=== PATIENT | male | born 1945 | race Caucasian/White ===

== ENCOUNTER 2018-05-13 10:50 | Emergency (ER) | payer MEDICARE, OTHER ==
[~2018-05-13] VITALS: Ht 170.2 cm; Wt 65.8 kg
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
[2018-05-13] MEDS ORDERED: DOPamine DRIP 250 ML IV ONE (10:53)
[2018-05-13] MEDS ORDERED: NS IV 1000 ML 1,000 ML IV ONE (10:53)
--- NOTE | 2018-05-13 10:53 | NUR ---
DR. HARRINGTON IN ROOM ASSESSING PT AT THIS TIME.
--- NOTE | 2018-05-13 10:55 | NUR ---
1055- DOPAMINE STARTED AT 5 MCG 1101- DOPAMINE INCREASED TO 7.5 MCG 1106- DOPAMINE INCREASED TO 10 MCG 1114- DOPAMINE STOPPED 1117- LEVOPHEN STARTED AT 5 MCG 1121- LEVOPHEN INCREASED TO 10 MCG 1132- DOPAMINE RESTARTED AT 10 MCG 1133- EMS 1 LITER NS DONE, 2ND LITER NS STARTED.
--- NOTE | 2018-05-13 10:55 | NUR ---
[facility]
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
--- NOTE | 2018-05-13 11:08 | NUR ---
LOUIST CALLED BACK AND REPORTS ON HER WAY COMING FROM [place]. ALSO RECCOMENDS LEVOPHED
--- NOTE | 2018-05-13 11:10 | NUR ---
END TIDAL 27 AT THIS TIME.
[2018-05-13] MEDS ORDERED: NS (IVPB) 250 ML ONE (11:11)
[2018-05-13] MEDS ORDERED: NOREPINEPHRINE 4 MG/4 ML (LEVOPHED) AMP IV ONE (11:11)
--- NOTE | 2018-05-13 11:18 | NUR ---
BLOOD DRAW FROM Wanda HAAS PER Amber MADRID APRN
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
[2018-05-13 11:33] LABS: BASOPHILS % (AUTO) 0 % (0-10); EOSINOPHILS % (AUTO) 1 % (0-10); HEMATOCRIT 30 % (40-54); HEMOGLOBIN 10.1 G/DL (13.3-17.7); LYMPHOCYTES # (AUTO) 1.9 X 10^3 (1.0-4.0); LYMPHOCYTES % (AUTO) 24 % (12-44); MEAN CORPUSCULAR HEMOGLOBIN 29 PG (25-34); MEAN CORPUSCULAR HGB CONC 33 G/DL (32-36); MEAN CORPUSCULAR VOLUME 86 FL (80-99); MEAN PLATELET VOLUME 9.3 FL (7.4-10.4); MONOCYTES # (AUTO) 0.4 X 10^3 (0.0-1.0); MONOCYTES % (AUTO) 5 % (0-12); NEUTROPHILS # (AUTO) 5.6 X 10^3 (1.8-7.8); NEUTROPHILS % (AUTO) 71 % (42-75); PLATELET COUNT 340 10^3/uL (130-400); RED CELL DISTRIBUTION WIDTH 14.9 % (10.0-14.5)
[2018-05-13 11:52] LABS: ALANINE AMINOTRANSFERASE 12 U/L (0-55); ALBUMIN 2.8 GM/DL (3.2-4.5); ALKALINE PHOSPHATASE 56 U/L (40-136); BILIRUBIN,TOTAL 0.2 MG/DL (0.1-1.0); BUN/CREATININE RATIO 12; CARBON DIOXIDE 18 MMOL/L (21-32); CHLORIDE 108 MMOL/L (98-107); CREATININE SERUM 1.14 MG/DL (0.60-1.30); GFR ESTIMATED > 60; GLUCOSE 252 MG/DL (70-105); POTASSIUM 3.3 MMOL/L (3.6-5.0); SODIUM 136 MMOL/L (135-145); TOTAL PROTEIN 5.1 GM/DL (6.4-8.2)
--- NOTE | 2018-05-13 12:00 | NUR ---
pastoral care samia here at this time.
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
--- NOTE | 2018-05-13 12:08 | NUR ---
PT BROTHER ARRIVED TO ED AT THIS TIME. Amber MADRID APRN TALKING TO PT BROTHER IN FAMILY ROOM.
--- NOTE | 2018-05-13 12:44 | NUR ---
levophed increased to 20 mcg dopamine increased to 15 mcg
[2018-05-13] MEDS ORDERED: NS IV 1000 ML 1,000 ML IV SCH ×2 (12:45→13:00)
[2018-05-13] MEDS ORDERED: PHENYLEPHRINE INJECTION 10 MG in NS (IVPB) 250 ML IV SCH (12:45)
--- NOTE | 2018-05-13 12:45 | NUR ---
[facility] here at this time.
[2018-05-13 13:08] LABS: FIBRINOGEN 418 MG/DL (221-496)
[2018-05-13 13:09] LABS: INR 1.1 (0.8-1.4); PROTHROMBIN TIME PATIENT 14.9 SEC (12.2-14.7)
[2018-05-13 13:14] LABS: FIBRIN DEGRADATION PRODUCTS > 20.00 UG/ML (0.00-0.49)
--- NOTE | 2018-05-13 13:15 | NUR ---
José Antonio Cali here for [facility] to cordinate with CATHERINE.
--- NOTE | 2018-05-13 13:24 | NUR ---
mwt reports pt is not a canidate for organ donation and it is ok to withdrawl life saving measures.
--- NOTE | 2018-05-13 13:27 | NUR ---
pt dcd from vent and drips per Pt brother and [facility] requests.
--- NOTE | 2018-05-13 14:22 | NUR ---
pt belongings (shoes/belt) sent with pt brother.
--- NOTE | 2018-05-13 16:14 | NUR ---
time of called at 1614 per Amber Almanzar aprn.
[2018-05-13 16:20] VITALS: BP 0/0
--- NOTE | 2018-05-13 16:20 | NUR ---
dr mason at pt bedside confirms HR and Respirations have ceased.
--- NOTE | 2018-05-13 17:14 | NUR ---
attempt to call pt brother at his phone number provided regarding passing of pt but did not get an answer. voicemail left to contact via [facility].
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
== END 2018-05-13 16:20 | disposition expired ==
LOC: ER 10:52
DX: S01.83XA Puncture wound without foreign body of other part of head, initial encounter (principal); R40.2112 Coma scale, eyes open, never, at arrival to emergency department; R40.2212 Coma scale, best verbal response, none, at arrival to emergency department; R40.2312 Coma scale, best motor response, none, at arrival to emergency department
CPT/HCPCS: 36415; 51702; 71045; 80053; 85025; 85379; 85384; 85610; 85730; 99291